=== PATIENT | female | born 1935 | race African-American/Black ===

== ENCOUNTER 2016-12-21 10:32 | Emergency (ER) | payer MEDICARE ==
[~2016-12-21] VITALS: Ht 157.5 cm; Wt 56.7 kg
[2016-12-21 10:49] VITALS: BP 151/65
--- NOTE | 2016-12-21 11:29 | RAD ---
Indication: Wrist hit by refrigerator door. Pain and discomfort for a few days. Technique: 3 views of the right wrist are submitted for review. No comparison is available. Findings: There is bone demineralization. There is chondrocalcinosis. A fracture or dislocation is not identified. Impression: Negative for fracture.
--- NOTE | 2016-12-21 11:51 | PHYS DOC ---
Past Medical History Past Medical History: Diabetes-Type II Past Surgical History: Hysterectomy Alcohol Use: None Drug Use: None Adult General Chief Complaint Chief Complaint: WRIST PAIN [facility] HPI Patient is a 81 year old female presents emergency department stating that a week ago Dave she was in getting something out of the refrigerator when the door came back and hit her in the right wrist. She states she is having pain in the scaphoid area is complaining of thumb pain and discomfort. She went to see her primary care physician and was told that she had a fracture. Patient states that she was told to follow-up with Dr. Baca in which she call for an appointment and has one tomorrow. Patient's x-rays here in the emergency department were negative. She will be placed in a splint. Patient states she has been taking ibuprofen for the pain and discomfort with minimal relief. Offered something stronger with patient and family member refusing. Review of Systems Review of Systems Constitutional: Denies fever or chills [] Eyes: Denies change in visual acuity, redness, or eye pain [] HENT: Denies nasal congestion or sore throat [] Respiratory: Denies cough or shortness of breath [] Cardiovascular: No additional information not addressed in HPI [] GI: Denies abdominal pain, nausea, vomiting, bloody stools or diarrhea [] : Denies dysuria or hematuria [] Musculoskeletal: Denies back pain. Right wrist pain and discomfort Integument: Denies rash or skin lesions [] Neurologic: Denies headache, focal weakness or sensory changes [] Endocrine: Denies polyuria or polydipsia [] Physical Exam Physical Exam Constitutional: Well developed, well nourished, no acute distress, non-toxic appearance. [] HENT: Normocephalic, atraumatic, bilateral external ears normal, oropharynx moist, no oral exudates, nose normal. [] Eyes: PERRLA, EOMI, conjunctiva normal, no discharge. [] Neck: Normal range of motion, no tenderness, supple, no stridor. [] Cardiovascular:Heart rate regular rhythm, no murmur [] Lungs & Thorax: Bilateral breath sounds clear to auscultation [] Skin: Warm, dry, no erythema, no rash. [] Back: No tenderness Extremities: Right wrist tenderness, no cyanosis, no clubbing, ROM intact, no edema. Tenderness noted over the scaphoid area on the right. Patient does have full range of motion with the thumb and wrist. Peripheral pulses 2+ cap refill brisk less than 2 seconds. Neurologic: Alert and oriented X 3, normal motor function, normal sensory function, no focal deficits noted. [] Psychologic: Affect normal, judgement normal, mood normal. [] Current Patient Data Vital Signs Vital Signs Date Time Temp Pulse Resp B/P Pulse Ox O2 Delivery O2 Flow Rate FiO2 12/21/16 10:49 97.8 64 18 97 Room Air 97.8 EKG EKG [] Radiology/Procedures Radiology/Procedures [][facility] [address] [place], [place] [id number] IMAGING REPORT Signed PATIENT: MARY MATHIS ACCOUNT: [id number] : 1935 LOCATION: ER AGE: 81 SEX: F EXAM STATUS: REG ER ORD. PHYSICIAN: TENZIN RO NP REASON: pain and discomfort, X A FEW DAYS, WRIST HIT BY REFRIDGERATOR DOOR PROCEDURE: WRIST 3V RIGHT Indication: Wrist hit by refrigerator door. Pain and discomfort for a few days. Technique: 3 views of the right wrist are submitted for review. No comparison is available. Findings: There is bone demineralization. There is chondrocalcinosis. A fracture or dislocation is not identified. Impression: Negative for fracture. DICTATED and SIGNED BY: ITALIA HELTON MD DATE: 12/21/16 1125 CC: TENZIN RO NP; RADHA FRANCES MD ~ Course & Med Decision Making Course & Med Decision Making Pertinent Labs and Imaging studies reviewed. (See chart for details) Patient will be placed in a thumb spica splint with recommendations to continue to follow-up with Dr. Ruth tomorrow. Patient will take ibuprofen at home for pain and discomfort ice packs and elevation. Patient does state that the pain does radiate from her wrist up into her axillary. Patient was encouraged to use ibuprofen ice packs on 20 minutes off 20 minutes several times a day and keep the immobilizer in place. Patient agrees with discharge instructions treatment regimens and follow-up recommendations. [] Dragon Disclaimer Dragon Disclaimer This electronic medical record was generated, in whole or in part, using a voice recognition dictation system. Departure Departure Impression: Primary Impression: Right wrist pain Disposition: 01 HOME, SELF-CARE Condition: STABLE Referrals: RADHA FRANCES MD (PCP) Patient Instructions: Splint Care, [id number], Wrist Pain, [id number] Additional Instructions: Activity as tolerated. Keep the splint in place. Ibuprofen for pain and discomfort. Sure you eat when taking this medication to avoid upset stomach. Stop taking ibuprofen if this developed. Ice packs on 20 minutes off 20 minutes several times a day. Elevation as much as possible. Follow-up with Dr. Ruth tomorrow which she state you have an appointment. Return back to emergency prior signs symptoms of become worse. TENZIN RO NP Dec 21, 2016 11:51
== END 2016-12-21 11:59 | disposition home or self-care (01) ==
LOC: ER 10:32
DX: M25.531 Pain in right wrist (principal); M79.644 Pain in right finger(s); E11.9 Type 2 diabetes mellitus without complications; W22.8XXA Striking against or struck by other objects, initial encounter; Y93.89 Activity, other specified; Y92.89 Other specified places as the place of occurrence of the external cause; Y99.8 Other external cause status
CPT/HCPCS: 29125; 73110; 99284-25

== ENCOUNTER → 2017-12-21 | Outpatient (CLI) | payer OTHER | END | disposition home or self-care (01) | LOC: MAMMO 14:26 | DX: Z12.31 Encounter for screening mammogram for malignant neoplasm of breast (principal) | CPT/HCPCS: 77063; 77067 ==